=== PATIENT | female | born 1990 | race American Indian/Alaskan Native ===

== ENCOUNTER 2019-03-25 13:24 | Emergency (ER) | payer OTHER ==
--- NOTE | 2019-03-25 14:14 | Emergency Department Report ---
Blank Doc - Documentation Documentation: 28-year-old female that presents with left 2nd toe abrasion. Stated dropped a 40 IB plate carrier. Pt also has 2nd complaint of right knee pain. Does not recall any injuries to right knee. This initial assessment/diagnostic orders/clinical plan/treatment(s) is/are subject to change based on patient's health status, clinical progression and re- assessment by fellow clinical providers in the ED. Further treatment and workup at subsequent clinical providers discretion. Patient/guardians urged not to elope from the ED as their condition may be serious if not clinically assessed and managed. Initial orders include: 1- Patient sent to [facility] for further evaluation and treatment 2- xrays
--- NOTE | 2019-03-25 15:37 | XRay Report ---
RIGHT KNEE, 3 VIEWS INDICATION: knee pain. COMPARISON: None. IMPRESSION: No acute osseous or soft tissue abnormality. No significant DJD. Signer Name: Carson Morocho Jr, MD Signed: 03/25/2019 3:32 PM Workstation Name: [id number]
--- NOTE | 2019-03-25 15:38 | XRay Report ---
LEFT FOOT, 3 VIEWS INDICATION: left toe/foot pain. COMPARISON: None. IMPRESSION: No acute osseous or soft tissue abnormality. No significant DJD. Signer Name: Carson Morocho Jr, MD Signed: 03/25/2019 3:33 PM Workstation Name: [id number]
--- NOTE | 2019-03-25 18:15 | Emergency Department Report ---
ED General Adult HPI - General Chief complaint: Extremity Injury, Lower Stated complaint: LFT FOOT/RT LEG PAIN Time Seen by Provider: 03/25/19 14:10 Source: patient Mode of arrival: Ambulatory Limitations: No Limitations - History of Present Illness Initial comments: Is a 28-year-old female presents to ED complaining of of left foot third toe pain 2 days. Patient states about a year ago she had an injury to the toe. Patient's is about 2 days ago it started bleeding at the nailbed. She denies any recent injuries to the toes. Patient is also complaining of right knee pain has worsened in the past day or so. Patient denies any injury trauma or falls. - Related Data Previous Rx's Medication Instructions Recorded Last Taken Type Ibuprofen [Motrin 800 MG tab] 800 mg PO TID #30 tablet 03/25/19 Unknown Rx cephALEXin [Keflex] 500 mg PO BID #14 capsule 03/25/19 Unknown Rx Allergies Allergy/AdvReac Type Severity Reaction Status Date / Time No Known Allergies Allergy Unverified 03/25/19 13:35 ED Review of Systems ROS: Stated complaint: LFT FOOT/RT LEG PAIN Other details as noted in HPI Comment: All other systems reviewed and negative ED Past Medical Hx - Past Medical History Previous Medical History?: No - Surgical History Past Surgical History?: No - Social History Smoking Status: Never Smoker Substance Use Type: Alcohol - Medications Home Medications: Home Medications Medication Instructions Recorded Confirmed Last Taken Type Ibuprofen [Motrin 800 MG tab] 800 mg PO TID #30 tablet 03/25/19 Unknown Rx cephALEXin [Keflex] 500 mg PO BID #14 capsule 03/25/19 Unknown Rx ED Physical Exam - General Limitations: No Limitations General appearance: alert, in no apparent distress - Head Head exam: Present: atraumatic, normocephalic - Eye Eye exam: Present: normal appearance - ENT ENT exam: Present: mucous membranes moist - Neck Neck exam: Present: normal inspection - Respiratory Respiratory exam: Present: normal lung sounds bilaterally. Absent: respiratory distress - Cardiovascular Cardiovascular Exam: Present: regular rate, normal rhythm. Absent: systolic murmur, diastolic murmur, rubs, gallop - GI/Abdominal GI/Abdominal exam: Present: soft, normal bowel sounds - Extremities Exam Extremities exam: Present: normal inspection, full ROM, other (paronychia, moderate mild swelling to the third toe, bleeding noted controlled. Deformity no fractures noted). Absent: tenderness, joint swelling - Back Exam Back exam: Present: normal inspection, full ROM. Absent: tenderness - Neurological Exam Neurological exam: Present: alert, oriented X3 - Psychiatric Psychiatric exam: Present: normal affect, normal mood - Skin Skin exam: Present: warm, dry, intact, normal color. Absent: rash ED Course Vital Signs 03/25/19 13:37 Temperature 98.5 F Pulse Rate 66 Respiratory 16 Rate Blood Pressure 105/68 O2 Sat by Pulse 98 Oximetry ED Medical Decision Making - Radiology Data Radiology results: report reviewed, image reviewed XRay Report Signed Patient: KERRY HUSSEIN MR#: [id number] : 1990 Acct:[id number] Age/Sex: 28 / F ADM Date: 03/25/19 Loc: ED Attending Dr: Ordering Physician: WYATT MURPHY NP Date of Service: 03/25/19 Procedure(s): XR knee 3V RT Accession Number(s): [id number] cc: WYATT MURPHY NP Fluoro Time In Minutes: RIGHT KNEE, 3 VIEWS INDICATION: knee pain. COMPARISON: None. IMPRESSION: No acute osseous or soft tissue abnormality. No significant DJD. Signer Name: Carson Landaverde Jr, MD Signed: 03/25/2019 3:32 PM Workstation Name: [id number] Transcribed By: TTR Dictated By: CARSON LANDAVERDE JR, MD Electronically Authenticated By: CARSON LANDAVERDE JR, MD Signed Date/Time: 03/25/[address]: Ordering Physician: WYATT MURPHY NP Date of Service: 03/25/19 Procedure(s): XR foot 3+V LT Accession Number(s): [id number] cc: WYATT MURPHY NP Fluoro Time In Minutes: LEFT FOOT, 3 VIEWS INDICATION: left toe/foot pain. COMPARISON: None. IMPRESSION: No acute osseous or soft tissue abnormality. No significant DJD. Signer Name: Carson Landaverde Jr, MD Signed: 03/25/2019 3:33 PM Workstation Name: [id number] Transcribed By: TTR Dictated By: CARSON LANDAVERDE JR, MD Electronically Authenticated By: CARSON LANDAVERDE JR, MD Signed Date/Time: 03/25/19 1533 - Medical Decision Making 28-year-old female presents to ED with left third toe pain ED course: Patient received in ED treatment ED. X-ray shows no acute findings of both the knee and foot, see report above Discussed all findings with the patient. Vital signs are normal patient is in no acute distress Discussed with patient follow-up with primary care physician. Discussed the patient and take medications as prescribed. Patient has no neurological deficit. He is ambulatory without any problems Patient is alert and oriented 3 and understands all instructions given. Critical care attestation.: If time is entered above; I have spent that time in minutes in the direct care of this critically ill patient, excluding procedure time. ED Disposition Clinical Impression: Toe blister without infection Disposition: DC- TO HOME OR SELFCARE Is pt being admited?: No Does the pt Need Aspirin: No Condition: Stable Instructions: Paronychia (ED) Additional Instructions: Make sure to follow up with the primary care physician as discussed. Take all your medications as you've been prescribed. If you have any worsening symptoms or develop new symptoms please return to ED immediately. Prescriptions: cephALEXin [Keflex] 500 mg PO BID #14 capsule Ibuprofen [Motrin 800 MG tab] 800 mg PO TID #30 tablet Referrals: [facility] [Outside] - 3-5 Days [facility] [Outside] - 3-5 Days Forms: Work/School Release Form(ED) Time of Disposition: 18:19
[2019-03-25] MEDS ORDERED: KEFLEX PO ONE (18:16)
[2019-03-25] MEDS ORDERED: IBUPROFEN PO ONE (18:16)
[2019-03-25 18:40] VITALS: BP 106/71
== END 2019-03-25 18:39 | disposition home or self-care (01) ==
LOC: ED 13:24
DX: S90.425A Blister (nonthermal), left lesser toe(s), initial encounter (principal); X58.XXXA Exposure to other specified factors, initial encounter; Y93.89 Activity, other specified; Y92.89 Other specified places as the place of occurrence of the external cause; Y99.8 Other external cause status